=== PATIENT | male | born 1980 | race Caucasian/White ===

== ENCOUNTER 2024-05-19 22:12 | Emergency (ER) | payer MEDICARE, MEDICAID ==
[2024-05-19] MEDS: Diltiazem 25 MG/5 ML SDV IVPUSH ONE ×3 (22:35→23:26)
[2024-05-19] MEDS: Sodium Chloride 0.9% 1,000 ML IV ONE (22:36)
[2024-05-19] MEDS ORDERED: Diltiazem 25 MG/5 ML SDV IVPUSH ONE (22:45)
[2024-05-19 22:53] LABS: BASOPHILS ABSOLUTE AUTO 0.2 x10-3/uL (0.0-0.3); BASOPHILS PERCENT AUTO 1.2 % (0.3-3.8); EOSINOPHILS ABSOLUTE AUTO 0.1 x10-3/uL (0.0-0.6); HEMOGLOBIN 14.1 g/dL (12.9-17.7); LYMPHOCYTES ABSOLUTE AUTO 5.1 x10-3/uL (0.5-4.5); LYMPHOCYTES PERCENT AUTO 38.4 % (15.8-45.3); MEAN CORPUSCULAR HEMOGLOBIN 27.8 pg (27.0-33.3); MEAN CORPUSCULAR HGB CONC 34.3 g/dL (28.7-35.3); MEAN CORPUSCULAR VOLUME 81.1 fL (80.8-98.7); MONOCYTES ABSOLUTE AUTO 1.1 x10-3/uL (0.0-1.2); MONOCYTES PERCENT AUTO 8.4 % (5.5-15.2); NEUTROPHILS ABSOLUTE AUTO 6.8 x10-3/uL (1.7-6.9); PLATELET COUNT,PLT 270 x10(3)uL (117-477); RED BLOOD CELL COUNT 5.06 x10(6)uL (3.90-5.90); RED CELL DISTRIBUTION WIDTH 13.8 % (12.4-15.0); WHITE BLOOD CELL COUNT,WBC 13.3 x10-3/uL (3.2-10.1)
[2024-05-19 22:55] LABS: BILIRUBIN,URINE NEGATIVE (NEGATIVE); GLUCOSE,URINE NORMAL (NORMAL); KETONES,URINE NEGATIVE (NEGATIVE); LEUKOCYTE ESTERASE,URINE NEGATIVE (NEGATIVE); NITRITE,URINE NEGATIVE (NEGATIVE); OCCULT BLOOD,URINE NEGATIVE (NEGATIVE); PROTEIN,URINE NEGATIVE (NEGATIVE); UROBILINOGEN,URINE NORMAL (NEGATIVE)
[2024-05-19 22:57] LABS: APPEARANCE,URINE CLEAR (CLEAR); COLOR,URINE YELLOW (YELLOW)
[2024-05-19 23:03] LABS: BLOOD UREA NITROGEN,BUN 17 mg/dL (7-18); BUN/CREATININE RATIO 15.5 (9-20); CALCIUM 8.7 mg/dL (8.6-10.2); CARBON DIOXIDE,CO2 26 mmol/L (21-32); CHLORIDE,CL 104 mmol/L (100-110); CREATININE 1.1 mg/dL (0.70-1.30); ESTIMATED GFR 85 mL/min (>60); GLUCOSE RANDOM 99 mg/dL (80-116); POTASSIUM,K 3.8 mmol/L (3.5-5.3); SODIUM,NA 139 mmol/L (135-145)
[2024-05-19 23:08] LABS: A/G RATIO 1.1; ALANINE AMINOTRANSFERASE,ALT 43 U/L (12-36); ALBUMIN 3.9 g/dL (3.5-5.2); ALKALINE PHOSPHATASE 69 IU/L (56-112); ASPARTATE AMNIOTRANSFERASE,AST 30 IU/L (5-25); BILIRUBIN TOTAL 0.4 mg/dL (0.1-1.3); PROTEIN TOTAL,TP 7.6 g/dL (6.0-8.0)
[2024-05-19 23:17] LABS: AMPHETAMINES SCREEN, URINE NEGATIVE (NEGATIVE)
[2024-05-19 23:18] LABS: BARBITURATE SCREEN,URINE NEGATIVE (NEGATIVE)
[2024-05-19 23:19] LABS: BENZODIAZEPINES SCREEN,URINE NEGATIVE (NEGATIVE); METHADONE SCREEN, URINE NEGATIVE (NEGATIVE); METHAMPHETAMINE SCREEN, URINE NEGATIVE (NEGATIVE); OXYCODONE SCREEN,URINE NEGATIVE (NEGATIVE); THC SCREEN,URINE NEGATIVE (NEGATIVE)
[2024-05-19 23:20] LABS: BUPRENORPHINE SCREEN,URINE NEGATIVE (NEGATIVE)
[2024-05-20 02:23] LABS: TSH ULTRASENSITIVE 7.82 IU/mL (0.36-3.74)
== END 2024-05-20 01:00 | disposition home or self-care (01) ==
LOC: FB.ED 22:12
DX: I48.91 Unspecified atrial fibrillation (principal); Z88.2 Allergy status to sulfonamides; Z88.8 Allergy status to other drugs, medicaments and biological substances; Z79.899 Other long term (current) drug therapy
CPT/HCPCS: 36415; 71045; 80053; 80307; 81003; 83735; 83880; 84443; 84484; 85025; 93005; 96361; 96374; 96376; 99285; J3490; J7030

== ENCOUNTER 2024-12-21 20:06 | Emergency (ER) | payer MEDICARE, MEDICAID ==
[2024-12-21] MEDS ORDERED: Sodium Chloride 0.9% 10 ML Syringe FLUSH PRN (20:08)
[2024-12-21 20:29] LABS: BASOPHILS ABSOLUTE AUTO 0.1 x10-3/uL (0.0-0.3); BASOPHILS PERCENT AUTO 0.9 % (0.3-3.8); EOSINOPHILS ABSOLUTE AUTO 0.1 x10-3/uL (0.0-0.6); EOSINOPHILS PERCENT AUTO 0.8 % (0.1-6.8); LYMPHOCYTES ABSOLUTE AUTO 3.5 x10-3/uL (0.5-4.5); LYMPHOCYTES PERCENT AUTO 26.0 % (15.8-45.3); MEAN PLATELET VOLUME 9.3 fL (6.7-11.0); MONOCYTES ABSOLUTE AUTO 1.3 x10-3/uL (0.0-1.2); MONOCYTES PERCENT AUTO 9.6 % (5.5-15.2); NEUTROPHILS ABSOLUTE AUTO 8.4 x10-3/uL (1.7-6.9); NEUTROPHILS PERCENT AUTO 62.7 % (40.3-71.8); PLATELET COUNT,PLT 271 x10(3)uL (117-477); RED BLOOD CELL COUNT 5.18 x10(6)uL (3.90-5.90); RED CELL DISTRIBUTION WIDTH 13.9 % (12.4-15.0); WHITE BLOOD CELL COUNT,WBC 13.4 x10-3/uL (3.2-10.1)
[2024-12-21 20:38] LABS: BLOOD UREA NITROGEN,BUN 9 mg/dL (7-18); CARBON DIOXIDE,CO2 25 mmol/L (21-32); CHLORIDE,CL 102 mmol/L (100-110); CREATININE 0.9 mg/dL (0.70-1.30); EST CRCL DRUG DOSING (CG) 107.02 mL/min; ESTIMATED GFR 107 mL/min (>60); GLUCOSE RANDOM 130 mg/dL (80-116); POTASSIUM,K 3.4 mmol/L (3.5-5.3); SODIUM,NA 138 mmol/L (135-145)
[2024-12-21 20:45] LABS: A/G RATIO 1.2; ALANINE AMINOTRANSFERASE,ALT 28 U/L (12-36); ASPARTATE AMNIOTRANSFERASE,AST 12 IU/L (5-25); BILIRUBIN TOTAL 0.3 mg/dL (0.1-1.3); PROTEIN TOTAL,TP 7.3 g/dL (6.0-8.0)
[2024-12-21 20:49] LABS: PRO B-TYPE NATRIUR PEPT,BNPPRO 24.0 pg/mL (<=125)
[2024-12-21 20:58] LABS: INR 0.98 (1.00-1.24)
[2024-12-21 21:00] LABS: PTT,PARTIAL THROMBOPLSTIN TIME 25.1 SECONDS (24.4-33.2)
[2024-12-21] MEDS: Potassium Chloride 20 MEQ Tab.ER PO STA (21:42)
== END 2024-12-21 21:49 | disposition home or self-care (01) ==
LOC: FB.ED 20:06
DX: R07.9 Chest pain, unspecified (principal); E87.6 Hypokalemia; Z88.2 Allergy status to sulfonamides; Z88.8 Allergy status to other drugs, medicaments and biological substances; Z79.899 Other long term (current) drug therapy
CPT/HCPCS: 36415; 71045; 80053; 83880; 84484; 85025; 85610; 85730; 93005; 99285; A9270